=== PATIENT | female | born 1975 | race Caucasian/White ===

== ENCOUNTER 2017-11-12 13:51 | Emergency (ER) | payer BC ==
[2017-11-12 13:52] VITALS: BMI 31.6
[2017-11-12] MEDS ORDERED: Sodium Chloride 0.9% 1,000 ML IV ONE (14:27)
[2017-11-12 15:15] LABS: HEMOGLOBIN 15.6 g/dL (11.0-16.0); LYMPH % 18.9 % (20.0-40.0); MEAN CELL VOLUME 91.5 fL (81.0-99.0); MEAN CORPUSCULAR HEMOGLOBIN 30.8 pg (27.0-31.0); MEAN CORPUSCULAR HGB CONC 33.7 g/dL (33.0-37.0); MEAN PLATELET VOLUME 8.3 fL (7.2-11.7); NEUT % 71.3 % (50.0-75.0); RBC 5.06 Mil/uL (3.80-5.20); WHITE BLOOD COUNT 13.9 K/uL (4.8-10.8)
[2017-11-12 15:16] LABS: BASO # 0.1 K/uL (0.0-0.2); BASO % 0.8 % (0.0-2.0); EOS % 0.2 % (0.0-4.0); LYMPH # 2.6 K/uL (1.0-4.3); MONO # 1.2 K/uL (0.0-0.8); MONO % 8.8 % (0.0-10.0); NEUT # 9.9 K/uL (1.8-7.0); NRBC % 0.2 % (0.0-2.0)
[2017-11-12] MEDS ORDERED: Sodium Chloride 0.9% 1,000 ML ONE (15:17)
[2017-11-12 15:23] LABS: HCG,QUALITATIVE URINE NEGATIVE (NEGATIVE); SQUAMOUS EPITHIAL 12 /hpf (0-5); URINE BILIRUBIN NEGATIVE (NEGATIVE); URINE BLOOD 3+ (NEGATIVE); URINE CLARITY Hazy (Clear); URINE COLOR Amber (YELLOW); URINE GLUCOSE (UA) NORMAL (Normal); URINE LEUKOCYTE ESTERASE NEG Leu/uL (Negative); URINE PROTEIN 2+ mg/dL (NEGATIVE)
--- NOTE | 2017-11-12 15:54 | C.PDOC ---
History Of Present Illness 42 y/o female, M4, presents to ED c/o vaginal bleeding for the last 5 days. She states she passed painful clot 2 days ago. Denies fever, or other complaints. Time Seen by Provider: 11/12/17 14:17 Chief Complaint (Nursing): Abdominal Pain History Per: Patient History/Exam Limitations: no limitations Past Medical History Reviewed: Historical Data, Nursing Documentation, Vital Signs Vital Signs: Last Vital Signs Temp 98.1 F 11/12/17 14:00 Pulse 78 11/12/17 14:00 Resp 18 11/12/17 14:00 BP 165/102 H 11/12/17 14:00 Pulse Ox 96 11/12/17 15:58 - Medical History PMH: Asthma, Gall Bladder Disease ([facility] [place] [facility]) Surgical History: Cholecystectomy - [facility] Procedures D & C NEC (03/13/14) INJECT/INFUSE NEC (12/19/12) Family History: States: Unknown Family Hx - Social History Hx Alcohol Use: Yes Hx Substance Use: No - Immunization History Hx Tetanus Toxoid Vaccination: No Hx Influenza Vaccination: No Hx Pneumococcal Vaccination: No Review Of Systems Except As Marked, All Systems Reviewed And Found Negative. Constitutional: Negative for: Fever, Chills Cardiovascular: Negative for: Chest Pain Respiratory: Negative for: Shortness of Breath Genitourinary: Positive for: Vaginal Bleeding Physical Exam - Physical Exam Appears: Non-toxic, No Acute Distress, Other (obese) Skin: Normal Color, Warm, Dry Head: Atraumatic, Normacephalic Eye(s): bilateral: Normal Inspection Oral Mucosa: Moist Cardiovascular: Rhythm Regular Respiratory: Normal Breath Sounds, No Rales, No Rhonchi, No Wheezing Gastrointestinal/Abdominal: Soft, Tenderness (mild suprapubic), No Guarding, No Rebound Back: No CVA Tenderness Extremity: Normal ROM Neurological/Psych: Oriented x3, Normal Speech ED Course And Treatment - Laboratory Results Result Diagrams: 11/12/17 15:08 Lab Interpretation: Normal (ua neg.) Urine POC: Negative O2 Sat by Pulse Oximetry: 96 Pulse Ox Interpretation: Normal Medical Decision Making Medical Decision Making: Plan: Blood work Urinalysis Transvag US Pepcid, Zofran, IV fluids NO normal pelvic US menstrual period HGB 15.6- stable, no sig blood loss. Disposition Doctor Will See Patient In The: Office Counseled Patient/Family Regarding: Studies Performed - Disposition Disposition: HOME/ ROUTINE Disposition Time: 16:24 Condition: GOOD Forms: [facility] (Macedonian) - Clinical Impression Clinical Impression: Vaginal bleeding - Scribe Statement The provider has reviewed the documentation as recorded by the Scribe KP All medical record entries made by the Scribe were at my direction and personally dictated by me. I have reviewed the chart and agree that the record accurately reflects my personal performance of the history, physical exam, medical decision making, and the department course for this patient. I have also personally directed, reviewed, and agree with the discharge instructions and disposition.
--- NOTE | 2017-11-12 16:18 | US ---
Date of service: 11/12/2017 HISTORY: vag bleed COMPARISON: None available. TECHNIQUE: Transabdominal and transvaginal pelvic ultrasound was performed. FINDINGS: UTERUS: Measures 8.2 x 4.8 x 5.5 cm. Anteverted, normal in size and appearance. No fibroid or other mass lesion seen. ENDOMETRIUM: Measures 2.1 mm in diameter. Normal in appearance. CERVIX: Unremarkable. RIGHT OVARY: Measures 2.8 x 2.4 x 2.4 cm. No solid mass. Normal flow. LEFT OVARY: Measures 3.1 x 1.9 x 3.1 cm. No solid mass. Normal flow. FREE FLUID: No significant free fluid noted. OTHER FINDINGS: None. IMPRESSION: Unremarkable pelvic ultrasound.
[2017-11-12 16:40] VITALS: BP 154/83; PULSE 60; RESP 16; TEMP 98.3; O2SAT 99
== END 2017-11-12 16:50 | disposition home or self-care (01) ==
LOC: C.ER 13:51
DX: N93.9 Abnormal uterine and vaginal bleeding, unspecified (principal)
CPT/HCPCS: 76830; 76856; 81001; 84703; 85025; 86850; 86900; 96374; 96375; 99284; J2405; J7030